=== PATIENT | male | born 1995 | race Caucasian/White ===

== ENCOUNTER 2021-04-09 11:37 | Day surgery (SDC) | payer OTHER ==
[~2021-04-09] VITALS: Ht 170.2 cm; Wt 77.1 kg
[~2021-04-09 11:37] MED LIST: LIDOCAINE 2% 100MG/5ML SDV (FOR ANES.) As Ordered ONE; NS 1,000 ML IV ONE; propofoL 500 MG/50 ML VIAL As Ordered ONE
--- OUTSIDE RECORDS SUMMARY | 2021-04-09 11:40 | CCD | Continuity of Care Document ---
Author Author Grey PARRA MD Organization Unknown Address [address] [place] [address] Phone [phone] Care Team Providers Care Well Flow Operator Name Role Phone Sedrick Sales PA-C AUTM [phone] Problems Description No Information Available Social History Type Date Description Comments Sex Unknown ETOH Use Denies alcohol use Tobacco Use Start: Unknown Non Smoker Allergies and adverse reactions Description No Known Drug Allergies Medications Active Medications SIG Qnty Indications Ordering Provide r Date Magnesium Citrate 1.745GM/30ML Kristie ution one 10 oz bottle green or clear only, use for additional prep at 2-3 days before procedure 296ml R19.5 Amilcar Parra MD 03/25/2021 Miralax 17GM/Scoop Powder use as directed see dr parra colon preparation instructions 510gm R19.5 Uzair Parra MD 03/25/2021 History Medications No Active Medications Unknown - 03/25/2021 Immunizations Description No Information Available Vital Signs Date Vital Result Comment 03/25/2021 2:18pm BP Systolic 142 mmHg BP Diastolic 84 mmHg Height 67 inches 5'7" Weight 177.00 lb BMI (Body Mass Index) 27.7 kg/m2 [place] Body Weight 148 lb Weight 80.287 kg BSA (Body Surface Area) 1.92 m2 Results Description No Information Available Procedures Date Code Description Status 03/25/2021 12021 Office/Outpatient New Low MDM 30 -44 Minutes Completed Medical Devices Description No Information Available Encounters Type Date Location Provider Dx Diagnosis Office Visit 03/25/2021 1:45p [facility] Amilcar Parra MD R19.5 Other fecal abnormalities Assessments Date Code Description Provider 03/25/2021 R19.5 Other fecal abnormalities Amilcar Parra MD Plan of Treatment 03/25/2021 - Amilcar Parra MD* R19.5 Other fecal abnormalities* New Medication: * Magnesium Citrate 1.745 GM/30ML * Miralax 17 GM/Scoop * New Orders:* EGD and Colonoscopy, Ordered: 03/25/21 Functional Status Description No Information Available Mental Status Description No Information Available Referrals Refer to Dr Reason for Referral Status Appt Date Amilcar Parra M.D. MELENA, 1 NEW 02/23 TO 08/22, 3 EST 02/23/07 13 TO 02/23/22 Scheduled 03/25/2021 [facility], Gastroenterology [address] [facility], [address] [place] [address] [phone]
--- OUTSIDE RECORDS SUMMARY | 2021-04-09 11:40 | CCD ---
Author Author [facility] Organization [facility] Address Unknown Phone Unavailable Care Team Providers Care Recruitment Coordinator Name Role Phone MALIK, EUGENE PIMENTEL Unavailable Unavailable REINDL, EUGENE PIMENTEL Unavailable Unavailable REINDL, EUGENE PIMENTEL Unavailable Unavailable REINDL, EUGENE PIMENTEL Unavailable Unavailable REINDL, EUGENE PIMENTEL Unavailable Unavailable REINDL, EUGENE PIMENTEL Unavailable Unavailable REINDL, EUGENE PIMENTEL Unavailable Unavailable REINDL, EUGENE PIMENTEL Unavailable Unavailable REINDL, EUGENE PIMENTEL Unavailable Unavailable REINDL, EUGENE PIMENTEL Unavailable Unavailable REINDL, EUGENE PIMENTEL Unavailable Unavailable REINDL, EUGENE PIMENTEL Unavailable Unavailable REINDL, EUGENE PIMENTEL Unavailable Unavailable REINDL, EUGENE PIMENTEL Unavailable Unavailable REINDL, EUGENE PIMENTEL Unavailable Unavailable REINDL, EUGENE PIMENTEL Unavailable Unavailable REINDL, EUGENE PIMENTEL Unavailable Unavailable REINDL, EUGENE PIMENTEL Unavailable Unavailable REINDL, EUGENE PIMENTEL Unavailable Unavailable REINDL, EUGENE PIMENTEL Unavailable Unavailable REINDL, EUGENE PIMENTEL Unavailable Unavailable REINDL, EUGENE PIMENTEL Unavailable Unavailable REINDL, EUGENE PIMENTEL Unavailable Unavailable REINDL, EUGENE PIMENTEL Unavailable Unavailable REINDL, EUGENE PIMENTEL Unavailable Unavailable REINDL, EUGENE PIMENTEL Unavailable Unavailable REINDL, EUGEEN PIMENTEL Unavailable Unavailable REINDL, EUGENE PIMENTEL Unavailable Unavailable REINDL, EUGENE PIMENTEL Unavailable Unavailable REINDL, EUGENE PIMENTEL Unavailable Unavailable REINDL, EUGENE PIMENTEL Unavailable Unavailable REINDL, EUGENE PIMENTEL Unavailable Unavailable REINDL, EUGENE PIMENTEL Unavailable Unavailable REINDL, EUGENE PIMENTEL Unavailable Unavailable REINDL, EUGENE PIMENTEL Unavailable Unavailable REINDL, EUGENE PIMENTEL Unavailable Unavailable REINDL, EUGENE PIMENTEL Unavailable Unavailable REINDL, EUGENE PIMENTEL Unavailable Unavailable REINDL, EUGENE PIMENTEL Unavailable Unavailable REINDL, EUGENE PIMENTEL Unavailable Unavailable REINDL, EUGENE PIMENTEL Unavailable Unavailable REINDL, EUGENE PIMENTEL Unavailable Unavailable Re-disclosure Warning The records that you are about to access may contain information from federally-assisted alcohol or drug abuse programs. If such information is present, then the following federally mandated warning applies: This information has been disclosed to you from records protected by federal confidentiality rules (42 CFR part 2). The federal rules prohibit you from making any further disclosure of this information unless further disclosure is expressly permitted by the written consent of the person to whom it pertains or as otherwise permitted by 42 CFR part 2. A general authorization for the release of medical or other information is NOT sufficient for this purpose. The Federal rules restrict any use of the information to criminally investigate or prosecute any alcohol or drug abuse patient.The records that you are about to access may contain highly sensitive health information, the redisclosure of which is protected by Article 27-F of the [facility] Public Health law. If you continue you may have access to information: Regarding HIV / AIDS; Provided by facilities licensed or operated by the [facility] Office of Mental Health; or Provided by the [facility] Office for People With Developmental Disabilities. If such information is present, then the following [facility] mandated warning applies: This information has been disclosed to you from confidential records which are protected by state law. State law prohibits you from making any further disclosure of this information without the specific written consent of the person to whom it pertains, or as otherwise permitted by law. Any unauthorized further disclosure in violation of state law may result in a fine or assisted sentence or both. A general authorization for the release of medical or other information is NOT sufficient authorization for further disc losure. Encounters Encounter Providers Location Date Indications Data Source(s ) Outpatient Attender: EUGENE Banerjee/Vidal/Silver/Audra [place] 03/25/2021 01:45:00 PM EDT [facility] ([facility], ) Medications Medication Brand Name Start Date Product Form Dose Route Admi nistrative Instructions Pharmacy Instructions Status Indications Reaction Description Data Source(s) No Active Medications 03/25/2021 12:00:00 AM EDT completed [facility] ([facility], ) POLYETHYLENE GLYCOL 3350 142 MG/ML Oral Solution [Miralax] M iralax 03/25/2021 12:00:00 AM EDT active M [facility] ([facility], ) magnesium citrate 58.2 MG/ML Oral Solution Magnesium Citrate 03/25/2021 12:00:00 AM EDT active [facility] ([facility]) Insurance Providers Payer name Policy type / Coverage type Policy ID Covered alliance party ID Covered alliance party's relationship to pang Policy Pang Plan Information [facility] [employer] [id number] Problems, Conditions, and Diagnoses No Information Surgeries/Procedures Procedure Description Date Indications Data Source(s) OFFICE OUTPATIENT NEW 30 MINUTES 03/25/2021 12:00:00 A M LEOT [facility] ([facility]) Results No Information Social History No Information Vital Signs ID Date Data Source UNK Name Value Range Interpretation Code Description Data Source(s) Systolic blood pressure 142 mm[Hg] 142 mm[Hg] [facility] ([facility]) Diastolic blood pressure 84 mm[Hg] 84 mm[Hg] [facility] ([facility]) Body height 67 [in_i] 67 [in_i] [facility] ([facility]) 5'7" Body weight 177.00 [lb_av] 177.00 [lb_av] [facility] Body mass index (BMI) [Ratio] 27.7 kg/m2 27.7 k g/m2 [facility] ([facility]) [place] body weight 148 [lb_av] 148 [lb_av] [facility] Body weight 80.287 kg 80.287 kg [facility] ([facility]) Body surface area Derived from formula 1.92 m2 1.92 m2 [facility] ([facility])
--- OUTSIDE RECORDS SUMMARY | 2021-04-09 11:40 | CCD | Continuity of Care Document ---
Author Author Grey PARRA MD Organization Unknown Address [address] [place] [address] Phone [phone] Care Team Providers Care Ict Business Analyst Name Role Phone Sedrick Sales PA-C AUTM [phone] Problems Description No Information Available Social History [...] lb BMI (Body Mass Index) 27.7 kg/m2 [place] Body Weight 148 lb Weight 80.287 kg BSA (Body Surface Area) 1.92 m2 Results Description No Information Available Procedures Date Code Description Status 03/25/2021 15079 Office/Outpatient New Low MDM 30 -44 Minutes Completed Medical Devices Description No Information Available Encounters Type Date Location Provider Dx Diagnosis Office Visit 03/25/2021 1:45p [facility] Amilcar Parra MD R19.5 [...] EST 02/23/07 13 TO 02/23/22 Scheduled 03/25/2021 [facility], Gastroenterology [address] [facility], [address] [place] [address] [phone]
--- OUTSIDE RECORDS SUMMARY | 2021-04-09 11:40 | CCD | Continuity of Care Document ---
Author Author Grey PARRA MD Organization Unknown Address [address] [place] [id number] Phone [phone] Care Team Providers Care Car Park Attendant Name Role Phone Sedrick Sales PA-C AUTM [phone] Problems Description No Information Available Social History [...] lb BMI (Body Mass Index) 27.7 kg/m2 [place] Body Weight 148 lb Weight 80.287 kg BSA (Body Surface Area) 1.92 m2 Results Description No Information Available Procedures Date Code Description Status 03/25/2021 32983 Office/Outpatient New Low MDM 30 -44 Minutes Completed Medical Devices Description No Information Available Encounters Type Date Location Provider Dx Diagnosis Office Visit 03/25/2021 1:45p [facility] Amilcar Parra MD R19.5 [...] EST 02/23/07 13 TO 02/23/22 Scheduled 03/25/2021 [facility], Gastroenterology [address] [facility], [address] [place] [address] [phone]
--- OUTSIDE RECORDS SUMMARY | 2021-04-09 11:40 | CCD | Continuity of Care Document ---
Author Author Grey PARRA MD Organization Unknown Address [address] [place] [address] Phone [phone] Care Team Providers Care Personal Lines Agent Name Role Phone Sedrick Sales PA-C AUTM [phone] Problems Description No Information Available Social History [...] lb BMI (Body Mass Index) 27.7 kg/m2 [place] Body Weight 148 lb Weight 80.287 kg BSA (Body Surface Area) 1.92 m2 Results Description No Information Available Procedures Date Code Description Status 03/25/2021 47193 Office/Outpatient New Low MDM 30 -44 Minutes Completed Medical Devices Description No Information Available Encounters Type Date Location Provider Dx Diagnosis Office Visit 03/25/2021 1:45p [facility] Amilcar Parra MD R19.5 [...] EST 02/23/07 13 TO 02/23/22 Scheduled 03/25/2021 [facility], Gastroenterology [address] [facility], [address] [place] [address] [phone]
[2021-04-09] MEDS ORDERED: fentaNYL 100 MCG/2 ML INJECTION (J3010) As Ordered ONE (12:01)
--- NOTE | 2021-04-09 13:01 | ROOR ---
Patient Name: Grey Baptiste Procedure Date: 04/09/2021 12:50 PM Date of : 1995 Age: 25 Room: [facility] Gender: Male Note Status: Finalized Procedure: Upper GI endoscopy Indications: Heme positive stool Providers: Amilcar Parra MD Referring MD: AUGUSTINE IRIZARRY MD Requesting Provider: Medicines: Monitored Anesthesia Care Complications: No immediate complications. Procedure: Pre-Anesthesia Assessment: - The heart rate, respiratory rate, oxygen saturations, blood pressure, adequacy of pulmonary ventilation, and response to care were monitored throughout the procedure. The Endoscope was introduced through the mouth, and advanced to the second part of duodenum. The upper GI endoscopy was accomplished without difficulty. The patient tolerated the procedure well. Findings: The esophagus was normal. The stomach was normal. The examined duodenum was normal. Impression: - Normal esophagus. - Normal stomach. - Normal examined duodenum. - No specimens collected. Recommendation: - Observe patient's clinical course. Procedure Code(s): --- Professional --- 77016, Esophagogastroduodenoscopy, flexible, transoral; diagnostic, including collection of specimen(s) by brushing or washing, when performed (separate procedure) Diagnosis Code(s): --- Professional --- R19.5, Other fecal abnormalities CPT copyright 2019 [employer]. All rights reserved. The codes documented in this report are preliminary and upon laminator printed circuit boards review may be revised to meet current compliance requirements. Amilcar Parra MD Amilcar Parra MD 04/09/2021 1:01:04 PM Electronically signed by Amilcar Parra MD Number of Addenda: 0 Note Initiated On: 04/09/2021 12:50 PM Estimated Blood Loss: Estimated blood loss: none.
[2021-04-09] MEDS ORDERED: propofoL 200 MG/20 ML VIAL As Ordered ONE (13:13)
--- NOTE | 2021-04-09 13:21 | ROOR ---
Patient Name: Grey Baptiste Procedure Date: 04/09/2021 12:51 PM Date of : 1995 Age: 25 Room: [facility] Gender: Male Note Status: Finalized Procedure: Colonoscopy Indications: Heme positive stool Providers: Amilcar Parra MD Referring MD: AUGUSTINE IRIZARRY MD Requesting Provider: Medicines: Monitored Anesthesia Care Complications: No immediate complications. Procedure: Pre-Anesthesia Assessment: - The heart rate, respiratory rate, oxygen saturations, blood pressure, adequacy of pulmonary ventilation, and response to care were monitored throughout the procedure. The Colonoscope was introduced through the anus and advanced to the terminal ileum, with identification of the appendiceal orifice and IC valve. The colonoscopy was performed with difficulty due to inadequate bowel prep. Successful completion of the procedure was aided by lavage. The patient tolerated the procedure well. The quality of the bowel preparation was unsatisfactory. Findings: The perianal and digital rectal examinations were normal. The colon is grossly normal without large tumors or obstructing lesions. Unable to perform adequate detail examination. Small lesions may have been missed. A 5 mm polyp was found in the sigmoid colon. The polyp was sessile. The polyp was removed with a cold snare. Resection and retrieval were complete. Impression: - Preparation of the colon was unsatisfactory. - The colon is grossly normal without large tumors or obstructing lesions. Unable to perform adequate detail examination. Small lesions may have been missed. - One 5 mm polyp in the sigmoid colon, removed with a cold snare. Resected and retrieved. Recommendation: - Repeat colonoscopy at the next available appointment because the bowel preparation was poor. - My office will call you in the next few days to set you up for this study/exam. Procedure Code(s): --- Professional --- 16143, Colonoscopy, flexible; with removal of tumor(s), polyp(s), or other lesion(s) by snare technique Diagnosis Code(s): --- Professional --- K63.5, Polyp of colon R19.5, Other fecal abnormalities CPT copyright 2019 [employer]. All rights reserved. The codes documented in this report are preliminary and upon gas plant technician review may be revised to meet current compliance requirements. Amilcar Parra MD Amilcar Parra MD 04/09/2021 1:21:20 PM Electronically signed by Amilcar Parra MD Number of Addenda: 0 Note Initiated On: 04/09/2021 12:51 PM Estimated Blood Loss: Estimated blood loss: none.
[2021-04-09 13:40] VITALS: BP 139/81
== END 2021-04-09 13:53 | disposition home or self-care (01) ==
LOC: M OPP 11:37
PROVIDERS: ATTEND Internal Medicine Gastroenterology
DX: K63.5 Polyp of colon (principal); R19.5 Other fecal abnormalities
CPT/HCPCS: 43235; 45385; 88305; J3010